=== PATIENT | female | born 1995 | race Caucasian/White ===

== ENCOUNTER 2019-02-06 18:44 | Emergency (ER) | payer MEDICAID ==
[~2019-02-06] VITALS: Ht 157.5 cm; Wt 95.3 kg
[2019-02-06 18:51] VITALS: Ht 157.5 cm; Wt 95.3 kg
[2019-02-06 19:48] LABS: PLATELET COUNT 300 x10^3mcL (130-400); RED CELL DISTRIBUTION WIDTH 13.9 % (11.5-14.5)
[2019-02-06 19:49] LABS: BASOPHIL % 0 % (0-2)
[2019-02-06 23:10] VITALS: BP 105/51
== END 2019-02-06 23:10 | disposition home or self-care (01) ==
LOC: ED 18:44
DX: O26.892 Other specified pregnancy related conditions, second trimester (principal); O99.512 Diseases of the respiratory system complicating pregnancy, second trimester; N89.8 Other specified noninflammatory disorders of vagina; Z3A.14 14 weeks gestation of pregnancy
CPT/HCPCS: 36415; Q0092